=== PATIENT | male | born 1985 | race Caucasian/White ===

== ENCOUNTER 2019-04-23 18:45 | Emergency (ER) | payer BC ==
[2019-04-23 19:30] VITALS: RESP 18
--- NOTE | 2019-04-23 19:49 | XR ---
EXAMINATION TYPE: XR hand complete LT DATE OF EXAM: 04/23/2019 CLINICAL HISTORY: Pain after punching injury. TECHNIQUE: Frontal, lateral and oblique images of the left hand are obtained. COMPARISON: None. FINDINGS: There is a comminuted slightly displaced fractures through the third through fifth metacar pal heads, third finger fractures shows intra-articular extension. The joint spaces in the left hand appear within normal limits. Moderate soft tissue swelling at the fracture site noted. IMPRESSION: There are acute comminuted minimally displaced fractures of the third through fifth meta carpal heads. (Initial encounter close type posttraumatic fracture)
[2019-04-23] MEDS ORDERED: ACET/COD 300 MG/30 MG STARTER PACK 6 TAB BTL PO STA (20:54)
--- NOTE | 2019-04-23 20:54 | ED ---
Upper Extremity HPI - General Chief Complaint: Extremity Injury, Upper Stated Complaint: hand injury Time Seen by Provider: 04/23/19 19:54 Source: patient Mode of arrival: ambulatory Limitations: no limitations - History of Present Illness Initial Comments: 33-year-old male presenting today for chief complaint left hand injury. Patient states that he punched a wall after getting that his fiance. He denies hitting another individual. Patient states his vaccinations are up-to-date. Patient denies numbness tingling or loss sensation to the digits. He states there is pain with extending at the digits. He states there is significant swelling. Patient denies falls injury to head and neck or any other complaints. Patient denies pain at the wrist elbow or shoulder of the left upper extremity. Remaining review of systems negative. Patient holding left hand upon arrival. Patient is [id number]. - Related Data Allergies Allergy/AdvReac Type Severity Reaction Status Date / Time No Known Allergies Allergy Verified 04/23/19 19:29 Review of Systems ROS Statement: Those systems with pertinent positive or pertinent negative responses have been documented in the HPI. ROS Other: All systems not noted in ROS Statement are negative. Past Medical History Past Medical History: No Reported History Past Surgical History: No Surgical Hx Reported Past Psychological History: No Psychological Hx Reported Smoking Status: Never smoker Past Alcohol Use History: Occasional Past Drug Use History: None Reported General Exam - General Exam Comments Initial Comments: General: The patient is awake and alert, in no distress, and does not appear acutely ill. Eye: +3 mm pupils are equal, round and reactive to light, extra-ocular movements are intact. No nystagmus. There is normal conjunctiva bilaterally. No signs of icterus. Ears, nose, mouth and throat: There are moist mucous membranes and no oral lesions. Neck: The neck is supple, there is no tenderness or JVD. Cardiovascular: There is a regular rate and rhythm. No murmur, rub or gallop is appreciated. Respiratory: Lungs are clear to auscultation, respirations are non-labored, breath sounds are equal. No wheezes, stridor, rales, or rhonchi. Musculoskeletal: Negative swelling over the metacarpals on gross examination of the left hand. Patient is very tender diffusely over the hand. Patient has limited range of motion secondary to pain when extending at the digits or flexing at MTP joint, able to wiggle fingers of the left hand slightly. Normal ROM, no tenderness at the wrist, elbows and shoulder b/l. Strength 5/5. Sensation intact both proximal and distal to injury stire. Radial pulses equal bilaterally 2+. Capillary refill of affected digits < 3 seconds. Neurological: A&O x 3. CN II-XII intact, There are no obvious motor or sensory deficits. Coordination appears grossly intact. Speech is normal. Skin: Skin is warm and dry and no rashes or lesions are noted. Psychiatric: Cooperative, appropriate mood & affect, normal judgment. Limitations: no limitations Course Vital Signs 04/23/19 04/23/19 19:27 21:11 Temperature 98.7 F 98.3 F Pulse Rate 92 89 Respiratory 18 18 Rate Blood Pressure 143/74 139/80 O2 Sat by Pulse 98 99 Oximetry Medical Decision Making - Medical Decision Making 33yo male presenting today for chief complaint left hand pain. There are metacarpal head fractures of digits 3 through 5 on imaging studies. Patient has full sensation he refuses to fully range at the digits 3-5 secondary to pain. Patient has good capillary refill. I contacted radiologic electronic specialist orthopedic surgeon Akin SIM PA-C, i discussed case and physical examination findings. He personally reviewed imaging studies, recommend ulnar gutter,and outpatient f/u. Patient splinted repeat N/V exam no change. Patient given Tylenol #3, importance of follow-up and return parameters were discussed at length the patient verbalized understanding. I discussed the case with Dr. Delgadillo attending provider who was agreeable with care plan and discharge. Disposition Clinical Impression: Fracture of metacarpal, multiple sites, left hand, closed, Hand pain Disposition: HOME SELF-CARE Condition: Good Instructions (If sedation given, give patient instructions): Hand Fracture (ED) Additional Instructions: Please use medication as discussed. Please follow-up with orthopedic surgery in the next 1-2 days as discussed. Call office to arrange appointment. Please return to emergency room if the symptoms increase or worsen or for any other concerns. Is patient prescribed a controlled substance at d/c from ED?: No Referrals: None,Stated [Primary Care Provider] - 1-2 days Marcin Rankin PAC [PHYSICIAN EDUCATIONAL/DEVELOPMENT ASSISTANT] - 1-2 days Time of Disposition: 20:53
[2019-04-23 21:13] VITALS: BP 139/80; PULSE 89; TEMP 98.3
== END 2019-04-23 21:12 | disposition home or self-care (01) ==
LOC: EC 18:45
DX: S62.333A Displaced fracture of neck of third metacarpal bone, left hand, initial encounter for closed fracture (principal); S62.335A Displaced fracture of neck of fourth metacarpal bone, left hand, initial encounter for closed fracture; S62.337A Displaced fracture of neck of fifth metacarpal bone, left hand, initial encounter for closed fracture; W22.01XA Walked into wall, initial encounter; Y92.009 Unspecified place in unspecified non-institutional (private) residence as the place of occurrence of the external cause
CPT/HCPCS: 29125; 99283